=== PATIENT | male | born 1950 | race African-American/Black ===

== ENCOUNTER 2018-04-10 05:34 | Inpatient (IN) | payer MEDICARE, OTHER ==
[~2018-04-10] VITALS: Ht 170.2 cm; Wt 83.5 kg
[2018-04-10] MEDS ORDERED: SODIUM CHLORIDE 0.9% 1,000 ML IV SCH (06:30)
[2018-04-10] MEDS ORDERED: BUPIVACAINE HCL/PF 0.5% (5MG/ML) 10ML ONE (07:03)
[2018-04-10] MEDS ORDERED: LEVOFLOXACIN 500MG PREMIX 100 ML IV ONE (07:03)
[2018-04-10] MEDS ORDERED: METRONIDAZOLE 500 MG PREMIX 100 ML IV ONE (07:03)
[2018-04-10] MEDS ORDERED: NORMAL SALINE 0.9% 10 ML SYR ONE (07:04)
[2018-04-10] MEDS ORDERED: BACITRACIN 50,000 UNITS/VIAL ONE (07:04)
[2018-04-10] MEDS ORDERED: FENTANYL CITRATE/PF 50MCG/ML 2ML VIAL ONE (07:11)
[2018-04-10] MEDS ORDERED: MIDAZOLAM HCL 2 MG/2 ML VIAL ONE (07:11)
[2018-04-10] MEDS ORDERED: HYDROMORPHONE HCL/PF 2MG/ML (OR) ONE (07:12)
[2018-04-10] MEDS ORDERED: PROPOFOL 200MG/20ML VIAL IV ONE (07:12)
[2018-04-10] MEDS ORDERED: METOCLOPRAMIDE HCL 10MG/2ML VIAL ONE (07:13)
[2018-04-10] MEDS ORDERED: ONDANSETRON HCL 4MG/2ML INJ ONE (07:13)
[2018-04-10] MEDS ORDERED: VECURONIUM BROMIDE 10 MG/VIAL IV ONE (07:14)
[2018-04-10] MEDS ORDERED: DEXAMETHASONE 4MG/ML 1ML VIAL ONE (07:14)
[2018-04-10] MEDS ORDERED: KETOROLAC 30MG/ML VIAL ONE (07:14)
[2018-04-10] MEDS ORDERED: SODIUM CHLORIDE 0.9% 10ML VIAL ONE (07:14)
[2018-04-10] MEDS ORDERED: LIDOCAINE HCL/PF 1% 10 MG/ML 5ML VIAL ONE ×2 (07:14→08:48)
[2018-04-10] MEDS ORDERED: SUCCINYLCHOLINE CHLORIDE 200MG/10ML IV ONE (07:19)
[2018-04-10] MEDS ORDERED: LEVOFLOXACIN 500MG PREMIX 100 ML IV SCH (07:30)
[2018-04-10] MEDS ORDERED: ACETAMINOPHEN 650MG SUPP PR PRN (07:30)
[2018-04-10] MEDS ORDERED: NEOSTIGMINE METHYLSULFATE 1MG/ML 10 ML VIAL ONE (08:46)
[2018-04-10] MEDS ORDERED: GLYCOPYRROLATE 0.2 MG/ML 2ML VIAL ONE (08:46)
[2018-04-10] MEDS ORDERED: ONDANSETRON HCL 4MG/2ML INJ IV PRN (09:30)
[2018-04-10] MEDS ORDERED: MEPERIDINE HCL/PF 25MG/ML CPJ IV PRN (09:30)
[2018-04-10] MEDS ORDERED: CELE200C PO (09:45)
[2018-04-10] MEDS ORDERED: ALPR-340 PO (09:45)
[2018-04-10] MEDS: HYDROMORPHONE HCL/PF 2MG/ML CPJ IV PRN ×4 (09:47→10:47)
[2018-04-10] MEDS ORDERED: HYDROMORPHONE PCA 10MG/50ML IV PRN (10:00)
[2018-04-10] MEDS ORDERED: NALOXONE INJ IV PRN (10:00)
[2018-04-10] MEDS ORDERED: DIPHENHYDRAMINE INJ IV PRN (10:00)
[2018-04-10] MEDS ORDERED: ONDANSETRON INJ IV PRN (10:00)
[2018-04-10] MEDS: BUPIVACAINE HCL 0.5% 290 ML in ON-Q PM015 DRUG DELIV DEVICE 1 EA IR SCH (10:05)
[2018-04-10 12:00] VITALS: BP 125/67
[2018-04-10 13:43] VITALS: BP 125/69
[2018-04-10] MEDS ORDERED: FAMOTIDINE 20MG/2ML VIAL IV NR (14:00)
[2018-04-10] MEDS ORDERED: LEVOFLOXACIN 500MG PREMIX 100 ML IV NR (15:00)
[2018-04-10] MEDS: METRONIDAZOLE 500 MG PREMIX 100 ML IV SCH ×2 (15:01→22:43)
[2018-04-10 16:00] VITALS: BP 133/71
[2018-04-10] MEDS ORDERED: MORPHINE SULFATE 4 MG/ML CPJ (NOT FOR IM USE) IV PRN (16:00)
[2018-04-10] MEDS: DEXT 5%/0.45% NACL KCL 20MEQ/L 1,000 ML IV SCH (17:38)
[2018-04-10 20:00] VITALS: BP 133/68
[2018-04-11 00:18] VITALS: BP 127/66
[2018-04-11 04:00] VITALS: BP 126/57
[2018-04-11] MEDS: DEXT 5%/0.45% NACL KCL 20MEQ/L 1,000 ML IV SCH ×3 (04:27→20:28)
[2018-04-11] MEDS: METRONIDAZOLE 500 MG PREMIX 100 ML IV SCH (05:17)
[2018-04-11 07:22] LABS: CHLORIDE 110 mEq/L (98-107)
[2018-04-11 08:00] VITALS: BP 128/56
[2018-04-11] MEDS: BUPIVACAINE HCL 0.5% 290 ML in ON-Q PM015 DRUG DELIV DEVICE 1 EA IR SCH (08:45)
[2018-04-11] MEDS: FAMOTIDINE 20MG/2ML VIAL IV SCH ×2 (09:07→20:29)
[2018-04-11 12:00] VITALS: BP 134/66
[2018-04-11 16:00] VITALS: BP 162/62
[2018-04-11 20:00] VITALS: BP 150/68
[2018-04-12] VITALS: BP 157/81
[2018-04-12 04:00] VITALS: BP 156/79
[2018-04-12] MEDS: DEXT 5%/0.45% NACL KCL 20MEQ/L 1,000 ML IV SCH ×2 (06:50→16:00)
[2018-04-12 08:00] VITALS: BP 125/68
[2018-04-12] MEDS: BUPIVACAINE HCL 0.5% 290 ML in ON-Q PM015 DRUG DELIV DEVICE 1 EA IR SCH (08:45)
[2018-04-12] MEDS: FAMOTIDINE 20MG/2ML VIAL IV SCH ×2 (09:28→21:38)
[2018-04-12 12:00] VITALS: BP 165/77
[2018-04-12 16:00] VITALS: BP 169/79
[2018-04-12 20:00] VITALS: BP 177/83
[2018-04-13] VITALS: BP 151/77
[2018-04-13 04:00] VITALS: BP 155/74
[2018-04-13] MEDS: DEXT 5%/0.45% NACL KCL 20MEQ/L 1,000 ML IV SCH ×3 (04:10→14:35)
[2018-04-13 07:54] VITALS: BP 158/81
[2018-04-13] MEDS: FAMOTIDINE 20MG/2ML VIAL IV SCH ×2 (09:12→20:39)
[2018-04-13 12:00] VITALS: BP 157/77
[2018-04-13 16:00] VITALS: BP 151/77
[2018-04-13 20:00] VITALS: BP 156/86
[2018-04-14] VITALS: BP 150/83
[2018-04-14 04:00] VITALS: BP 107/56
[2018-04-14] MEDS: ONDANSETRON HCL 4MG/2ML INJ IV PRN (04:25)
[2018-04-14 08:00] VITALS: BP 108/81
[2018-04-14] MEDS: FAMOTIDINE 20MG/2ML VIAL IV SCH ×2 (08:35→21:43)
[2018-04-14] MEDS: DEXT 5%/0.45% NACL KCL 20MEQ/L 1,000 ML IV SCH ×2 (08:35→18:04)
[2018-04-14 12:00] VITALS: BP_SYST 102; BP_SYST 114; BP_DIAS 69; BP_DIAS 80
[2018-04-14 16:00] VITALS: BP 114/86
[2018-04-14 20:00] VITALS: BP 102/90
[2018-04-15] VITALS: BP 135/77
[2018-04-15 04:00] VITALS: BP 128/77
[2018-04-15] MEDS: ONDANSETRON HCL 4MG/2ML INJ IV PRN ×2 (05:03→20:18)
[2018-04-15 08:00] VITALS: BP 126/92
[2018-04-15] MEDS: FAMOTIDINE 20MG/2ML VIAL IV SCH (09:00)
[2018-04-15 12:00] VITALS: BP 153/89
[2018-04-15 16:00] VITALS: BP 152/86
[2018-04-15] MEDS: DEXT 5%/0.45% NACL KCL 20MEQ/L 1,000 ML IV SCH (16:04)
[2018-04-15] MEDS: DIPHENHYDRAMINE 50MG/ML VIAL IV SCH (20:19)
[2018-04-15] MEDS: FAMOTIDINE 20MG TABLET PO SCH (21:00)
[2018-04-16] VITALS: BP 153/88
[2018-04-16] MEDS: DEXT 5%/0.45% NACL KCL 20MEQ/L 1,000 ML IV SCH ×3 (03:51→21:22)
[2018-04-16 04:00] VITALS: BP 148/79
[2018-04-16] MEDS ORDERED: VISCOUS LIDOCAINE 2% 15 ML UDC MM NR (07:15)
[2018-04-16 08:00] VITALS: BP 150/76
[2018-04-16] MEDS: FAMOTIDINE 20MG TABLET PO SCH (08:44)
[2018-04-16 12:00] VITALS: BP 143/77
[2018-04-16] MEDS ORDERED: DIPHENHYDRAMINE 50MG/ML VIAL IV PRN (20:00)
[2018-04-16] MEDS ORDERED: HYDROMORPHONE HCL/PF 2MG/ML CPJ IV PRN (21:00)
[2018-04-16] MEDS: FAMOTIDINE 20MG/2ML VIAL IV SCH (21:23)
[2018-04-16] MEDS: DIPHENHYDRAMINE 50MG/ML VIAL IV SCH (21:23)
[2018-04-17] VITALS: BP 164/88
[2018-04-17 04:00] VITALS: BP 160/81
[2018-04-17] MEDS: DEXT 5%/0.45% NACL KCL 20MEQ/L 1,000 ML IV SCH ×2 (05:44→17:09)
[2018-04-17] MEDS: FAMOTIDINE 20MG/2ML VIAL IV SCH ×2 (08:58→21:00)
[2018-04-17 16:00] VITALS: BP 155/86
[2018-04-17] MEDS ORDERED: ACETAMINOPHEN 325MG TABLET PO PRN (17:50)
[2018-04-17 20:00] VITALS: BP 153/78
[2018-04-17] MEDS: DIPHENHYDRAMINE 50MG/ML VIAL IV SCH (21:00)
[2018-04-17 21:21] LABS: HEMATOCRIT. 39.3 % (42.0-52.0); HEMOGLOBIN. 13.3 g/dL (14.0-18.0); MEAN CORPUSCULAR HEMOGLOBIN 30.8 pg (28.0-32.0); MEAN CORPUSCULAR VOLUME 90.9 fL (80.0-94.0); MEAN PLATELET VOLUME 8.3 fl (7.4-10.4); PLATELET 276 x1000/uL (130-400); RED BLOOD CELL COUNT 4.32 mill/uL (4.7-6.1); RED CELL DISTRIBUTION WIDTH 13.7 % (11.6-14.6)
[2018-04-17 21:56] LABS: PLATELET ESTIMATE NORMAL
[2018-04-18] VITALS: BP 161/81
[2018-04-18] MEDS: DEXT 5%/0.45% NACL KCL 20MEQ/L 1,000 ML IV SCH (02:00)
[2018-04-18 04:00] VITALS: BP 138/79
[2018-04-18 08:00] VITALS: BP 128/80
[2018-04-18] MEDS: FAMOTIDINE 20MG/2ML VIAL IV SCH (09:00)
[2018-04-18 10:44] LABS: HEMATOCRIT. 43.2 % (42.0-52.0); HEMOGLOBIN. 14.4 g/dL (14.0-18.0); MEAN CORPUSCULAR HEMOGLOBIN 30.5 pg (28.0-32.0); MEAN CORPUSCULAR VOLUME 91.7 fL (80.0-94.0); MEAN PLATELET VOLUME 8.4 fl (7.4-10.4); PLATELET 320 x1000/uL (130-400); RED BLOOD CELL COUNT 4.71 mill/uL (4.7-6.1); RED CELL DISTRIBUTION WIDTH 14.1 % (11.6-14.6)
[2018-04-18 11:44] LABS: CLARITY URINE CLEAR (CLEAR); COLOR URINE DARK YELLOW (YELLOW); KETONES URINE 1+ (NEGATIVE); LEUKOCYTE ESTERASE URINE NEGATIVE (NEGATIVE); NITRITE URINE NEGATIVE (NEGATIVE); OCCULT BLOOD URINE TRACE (NEGATIVE); PROTEIN URINE 1+ (NEGATIVE); SPECIFIC GRAVITY URINE 1.031 (1.005-1.030); UROBILINOGEN URINE 0.2 E.U./dL (0.2-1.0)
[2018-04-18 12:00] VITALS: BP 130/76
[2018-04-18 13:27] LABS: PLATELET ESTIMATE NORMAL
[2018-04-18 16:00] VITALS: BP 122/88
[2018-04-18 18:17] VITALS: BP 126/74
== END 2018-04-18 18:59 | disposition home or self-care (01) | DRG 331 ==
LOC: OR 05:34 → 6EST 05:35 → EDSTATUS 07:30
PROVIDERS: ADMIT Surgery; ATTEND Surgery
PROC: 0DTG0ZZ Resection of Left Large Intestine, Open Approach (ICD-10-PCS; principal; 2018-04-10 07:25)
DX: K63.89 Other specified diseases of intestine (principal); K56.7 Ileus, unspecified; B35.9 Dermatophytosis, unspecified
CPT/HCPCS: 36415; 71045; 74018; 80048; 86850; 86900; 88309; 88329; 97116; 97162; 97535; A4216; C1893; J0330; J1100; J1170; J1200; J1885; J1956; J2250; J2405; J2704; J2710; J2765; J3010; J3490; J7030; J7050